=== PATIENT | male | born 1965 | race Caucasian/White ===

== ENCOUNTER 2017-05-23 18:06 | Emergency (ER) | payer OTHER ==
[2017-05-23 19:26] VITALS: TEMP 97.8
[2017-05-23] MEDS ORDERED: SODIUM CHLORIDE 0.9% 1,000 ML IV STA ×2 (19:51)
[2017-05-23] MEDS ORDERED: RX INFO: IV CONTRAST WAS GIVEN 1 EACH MISC MISCELLANE PRN (19:51)
--- NOTE | 2017-05-23 20:06 | ED ---
General Adult HPI - General Chief complaint: Abdominal Pain Stated complaint: DR SENT/POSS APPENDICITIS Time Seen by Provider: 05/23/17 19:42 Source: patient, RN notes reviewed, old records reviewed Mode of arrival: ambulatory Limitations: no limitations - History of Present Illness Initial comments: This is a 51-year-old male to the ER for evaluation of pain with flank pain and right-sided abdominal pain and groin pain. Patient has no medical history of abdominal issues. Patient is an outpatient ultrasound which at this point so far been negative. Patient denies any fevers and mild nausea no vomiting. Occasional bloating. No recent waking or weight loss. Patient has no medical history takes no medications no surgical history. No travel history no family members with similar symptoms. Patient has seen his doctor outpatient basis twice for similar symptoms - Related Data Home Medications Medication Instructions Recorded Confirmed Ibuprofen [Motrin] 800 mg PO DAILY PRN 12/25/14 05/23/17 Omeprazole [PriLOSEC] 20 mg PO DAILY PRN 05/23/17 05/23/17 Allergies Allergy/AdvReac Type Severity Reaction Status Date / Time No Known Allergies Allergy Verified 05/23/17 20:03 Review of Systems ROS Statement: Those systems with pertinent positive or pertinent negative responses have been documented in the HPI. ROS Other: All systems not noted in ROS Statement are negative. Past Medical History Past Medical History: GERD/Reflux, Osteoarthritis (OA), Sleep Apnea/CPAP/BIPAP Additional Past Medical History / Comment(s): USES CPAP History of Any Multi-Drug Resistant Organisms: None Reported Past Surgical History: Heart Catheterization, Orthopedic Surgery Additional Past Surgical History / Comment(s): HEART CATH -NEG. CARPAL TUNNEL RIGHT. ORIF JAW. Past Anesthesia/Blood Transfusion Reactions: No Reported Reaction Smoking Status: Former smoker Past Alcohol Use History: Occasional Past Drug Use History: None Reported - Past Family History Father Family Medical History: AICD/Pacemaker General Exam Limitations: no limitations General appearance: alert, in no apparent distress Head exam: Present: atraumatic, normocephalic, normal inspection Eye exam: Present: normal appearance, PERRL, EOMI. Absent: scleral icterus, conjunctival injection, periorbital swelling ENT exam: Present: normal exam, mucous membranes moist Neck exam: Present: normal inspection. Absent: tenderness, meningismus, lymphadenopathy Respiratory exam: Present: normal lung sounds bilaterally. Absent: respiratory distress, wheezes, rales, rhonchi, stridor Cardiovascular Exam: Present: regular rate, normal rhythm, normal heart sounds. Absent: systolic murmur, diastolic murmur, rubs, gallop, clicks GI/Abdominal exam: Present: soft, normal bowel sounds. Absent: distended, tenderness, guarding, rebound, rigid Extremities exam: Present: normal inspection, full ROM, normal capillary refill. Absent: tenderness, pedal edema, joint swelling, calf tenderness Back exam: Present: normal inspection Neurological exam: Present: alert, oriented X3, CN II-XII intact Psychiatric exam: Present: normal affect, normal mood Skin exam: Present: warm, dry, intact, normal color. Absent: rash Course Vital Signs 05/23/17 05/23/17 05/23/17 19:23 20:08 21:36 Temperature 97.8 F Pulse Rate 72 67 68 Respiratory 16 18 16 Rate Blood Pressure 173/90 160/92 127/77 O2 Sat by Pulse 99 97 96 Oximetry - Reevaluation(s) Reevaluation #1: Patient is in no acute distress, no nausea vomiting, no current diarrhea or pain Medical Decision Making - Medical Decision Making 51 male to ER for evaluation of abdominal pain, patient has had multiple outpatient evaluations including ultrasound. Colonoscopy. Patient was sent in for further evaluation, sent in for evaluation regarding possible appendicitis, CT of the pelvis is negative as well as lab works being negative. Patient can be discharged home - Lab Data Result diagrams: 05/23/17 20:03 05/23/17 20:03 Lab Results 05/23/17 05/23/17 05/23/17 Range/Units 20:03 20:03 20:03 WBC 4.8 (3.8-10.6) k/uL RBC 5.26 (4.30-5.90) m/uL Hgb 15.5 (13.0-17.5) gm/dL Hct 46.8 (39.0-53.0) % MCV 89.0 (80.0-100.0) fL MCH 29.4 (25.0-35.0) pg MCHC 33.1 (31.0-37.0) g/dL RDW 13.8 (11.5-15.5) % Plt Count 205 (150-450) k/uL Neutrophils % 49 % Lymphocytes % 38 % Monocytes % 7 % Eosinophils % 4 % Basophils % 1 % Neutrophils # 2.4 (1.3-7.7) k/uL Lymphocytes # 1.8 (1.0-4.8) k/uL Monocytes # 0.3 (0-1.0) k/uL Eosinophils # 0.2 (0-0.7) k/uL Basophils # 0.0 (0-0.2) k/uL Sodium 139 (137-145) mmol/L Potassium 3.9 (3.5-5.1) mmol/L Chloride 104 (98-107) mmol/L Carbon Dioxide 24 (22-30) mmol/L Anion Gap 11 mmol/L BUN 15 (9-20) mg/dL Creatinine 0.90 (0.66-1.25) mg/dL Est GFR (MDRD) Af Amer >60 (>60 ml/min/1.73 sqM) Est GFR (MDRD) Non-Af >60 (>60 ml/min/1.73 sqM) Glucose 91 (74-99) mg/dL Plasma Lactic Acid Jacob (0.7-2.0) mmol/L Calcium 9.6 (8.4-10.2) mg/dL Total Bilirubin 0.5 (0.2-1.3) mg/dL AST 37 (17-59) U/L ALT 49 (21-72) U/L Alkaline Phosphatase 73 (38-126) U/L Total Protein 7.0 (6.3-8.2) g/dL Albumin 4.2 (3.5-5.0) g/dL Amylase <30 L (30-110) U/L Lipase 84 (23-300) U/L Urine Color Colorless Urine Appearance Clear (Clear) Urine pH 5.5 (5.0-8.0) Ur Specific [place] 1.002 (1.001-1.035) Urine Protein Negative (Negative) Urine Glucose (UA) Negative (Negative) Urine Ketones Negative (Negative) Urine Blood Negative (Negative) Urine Nitrite Negative (Negative) Urine Bilirubin Negative (Negative) Urine Urobilinogen <2.0 (<2.0) mg/dL Ur Leukocyte Esterase Negative (Negative) 05/23/17 Range/Units 20:03 WBC (3.8-10.6) k/uL RBC (4.30-5.90) m/uL Hgb (13.0-17.5) gm/dL Hct (39.0-53.0) % MCV (80.0-100.0) fL MCH (25.0-35.0) pg MCHC (31.0-37.0) g/dL RDW (11.5-15.5) % Plt Count (150-450) k/uL Neutrophils % % Lymphocytes % % Monocytes % % Eosinophils % % Basophils % % Neutrophils # (1.3-7.7) k/uL Lymphocytes # (1.0-4.8) k/uL Monocytes # (0-1.0) k/uL Eosinophils # (0-0.7) k/uL Basophils # (0-0.2) k/uL Sodium (137-145) mmol/L Potassium (3.5-5.1) mmol/L Chloride (98-107) mmol/L Carbon Dioxide (22-30) mmol/L Anion Gap mmol/L BUN (9-20) mg/dL Creatinine (0.66-1.25) mg/dL Est GFR (MDRD) Af Amer (>60 ml/min/1.73 sqM) Est GFR (MDRD) Non-Af (>60 ml/min/1.73 sqM) Glucose (74-99) mg/dL Plasma Lactic Acid [place] 1.2 (0.7-2.0) mmol/L Calcium (8.4-10.2) mg/dL Total Bilirubin (0.2-1.3) mg/dL AST (17-59) U/L ALT (21-72) U/L Alkaline Phosphatase (38-126) U/L Total Protein (6.3-8.2) g/dL Albumin (3.5-5.0) g/dL Amylase (30-110) U/L Lipase (23-300) U/L Urine Color Urine Appearance (Clear) Urine pH (5.0-8.0) Ur Specific [place] (1.001-1.035) Urine Protein (Negative) Urine Glucose (UA) (Negative) Urine Ketones (Negative) Urine Blood (Negative) Urine Nitrite (Negative) Urine Bilirubin (Negative) Urine Urobilinogen (<2.0) mg/dL Ur Leukocyte Esterase (Negative) - Radiology Data Radiology results: report reviewed (CT abdomen and pelvis is negative for acute disease), image reviewed Disposition Clinical Impression: Abdominal pain Disposition: HOME SELF-CARE Condition: Good Instructions: Abdominal Pain (ED) Referrals: Marito Saxena DO [Primary Care Provider] - 1-2 days
[2017-05-23 20:24] LABS: Basophils % (A) 1 %; CH 31.7; CHCM 35.8; Eosinophils # (A) 0.2 k/uL (0-0.7); Eosinophils % (A) 4 %; HCT 46.8 % (39.0-53.0); HDW 2.56; HGB 15.5 gm/dL (13.0-17.5); Luc # (Auto) 0.08; Luc % (Auto) 2; Lymphocytes # (A) 1.8 k/uL (1.0-4.8); Lymphocytes % (A) 38 %; MCH 29.4 pg (25.0-35.0); MCHC 33.1 g/dL (31.0-37.0); Mean Platelet Volume 7.4; Monocytes # (A) 0.3 k/uL (0-1.0); Monocytes % (A) 7 %; Neutrophils # (A) 2.4 k/uL (1.3-7.7); Neutrophils % (A) 49 %; RBC 5.26 m/uL (4.30-5.90); RDW 13.8 % (11.5-15.5); WBC 4.8 k/uL (3.8-10.6)
[2017-05-23 20:31] LABS: Appearance,Urine Clear (Clear); Bilirubin,Urine Negative (Negative); Glucose,Urine (UA) Negative (Negative); Ketones,Urine Negative (Negative); Leukocyte Esterase,Urine Negative (Negative); Nitrite,Urine Negative (Negative); PH, Urine 5.5 (5.0-8.0); Protein,Urine Negative (Negative); Specific Gravity,Urine 1.002 (1.001-1.035); UA Billing (MACRO vs. MICRO) CHEM; Urobilinogen,Urine <2.0 mg/dL (<2.0)
[2017-05-23 20:36] LABS: ALT 49 U/L (21-72); AST 37 U/L (17-59); Alkaline Phosphatase 73 U/L (38-126); Amylase <30 U/L (30-110); Anion Gap 11 mmol/L; Blood Urea Nitrogen 15 mg/dL (9-20); Calcium 9.6 mg/dL (8.4-10.2); Carbon Dioxide 24 mmol/L (22-30); Chloride 104 mmol/L (98-107); Glucose 91 mg/dL (74-99); Non-African American GFR(MDRD) >60 (>60 ml/min/1.73 sqM); Potassium 3.9 mmol/L (3.5-5.1); Sodium 139 mmol/L (137-145); Total Bilirubin 0.5 mg/dL (0.2-1.3)
--- NOTE | 2017-05-23 21:11 | CT ---
EXAMINATION TYPE: CT abdomen pelvis w con DATE OF EXAM: 05/23/2017 COMPARISON: 12/24/2011 HISTORY: RLQ pain for [address] DLP: 936.4 mGycm Automated exposure control for dose reduction was used. TECHNIQUE: Helical acquisition of images was performed from the lung bases through the pelvis. CONTRAST: Performed without Oral Contrast and with IV Contrast, patient injected with 100 mL of Omnipaque 300. FINDINGS: Lung bases are clear. There is no pleural effusion. Liver shows no focal defect. Spleen pancreas gallbladder appear normal. Bile ducts are not dilated. There is no adrenal mass. Kidneys show satisfactory contrast opacification. There is no hydronephrosi s. There is no retroperitoneal adenopathy. There is no ascites. Bladder distends smoothly. I see no i ntestinal wall thickening. There are no dilated loops. I see no bony destructive process. The bony st ructures appear intact. There are a few sigmoid diverticula. There is no evidence of diverticulitis. IMPRESSION: MINIMAL COLONIC DIVERTICULOSIS. NO EVIDENCE OF DIVERTICULITIS. NO ADVERSE CHANGE COMPARED TO OLD EXAM . I DO NOT SEE A CAUSE FOR RIGHT LOWER QUADRANT PAIN.
[2017-05-23 21:36] VITALS: BP 127/77; PULSE 68; RESP 16
== END 2017-05-23 21:36 | disposition home or self-care (01) ==
LOC: EC 18:06
DX: R10.31 Right lower quadrant pain (principal); R11.0 Nausea; R14.0 Abdominal distension (gaseous); Z87.891 Personal history of nicotine dependence
CPT/HCPCS: 99284; 96360; 36415; 80053; 82150; 83605; 83690; 85025; 81003; 87086; 74177; Q9967

== ENCOUNTER 2018-08-28 08:51 | Day surgery (SDC) | payer BC ==
[2018-08-25 09:30] VITALS: BMI 33.9
[~2018-08-28 08:51] MED LIST: LACTATED RINGERS 1,000 ML IV SCH; LIDOCAINE 1% 20 ML VIAL (10MG/ML) FOR IV START INTRADERMA PRN; MIDAZOLAM 2 MG/2 ML VIAL IV PRN
[2018-08-28 09:12] VITALS: RESP 18; TEMP 97.8
[2018-08-28] MEDS ORDERED: PROPOFOL 10 MG/ML 20 ML VIAL IV ONE (10:11)
[2018-08-28] MEDS ORDERED: LIDOCAINE 1% INJ 10MG/ML (20 ML MDV) ONE (10:11)
[2018-08-28 10:58] VITALS: BP 125/75; PULSE 73
--- NOTE | 2018-08-28 11:26 | P.PCN ---
Date of Procedure: 08/28/18 Procedure(s) Performed: Procedure: Total colonoscopy. Preoperative diagnosis: Screening for neoplasia, patient has history of polyps. Postoperative diagnosis: Exam within normal limits. Preparation: HalfLytely prep. Sedation: Was provided by anesthesia. Brief clinical history: The patient is a 53-year-old male who is scheduled for this evaluation because of history of polyps. His last exam was around 5 years ago. The patient has no abdominal complaints, bleeding or anemia. Procedure: With the patient on his left lateral decubitus position and after informed consent and adequate sedation, the perianal area was inspected and it did not show any fissures or fistulas. There were no masses felt on digital rectal examination. The Olympus CFH 190L video colonoscope was then inserted in the rectum in the usual fashion and advanced to the cecum. The mucosa appeared healthy. No polyps or tumors were seen or any obvious diverticular disease or other pathology. I retroflexed the endoscope in the rectum before the endoscope was withdrawn. The patient tolerated the procedure well. Plan: The patient was reassured. He will follow up with you as planned and I recommended repeat exam in 5 years.
== END 2018-08-28 11:19 | disposition home or self-care (01) ==
LOC: ORWHC2ENDO 08:51
DX: Z12.11 Encounter for screening for malignant neoplasm of colon (principal); K21.9 Gastro-esophageal reflux disease without esophagitis; M19.90 Unspecified osteoarthritis, unspecified site; G47.33 Obstructive sleep apnea (adult) (pediatric); Z86.010 Personal history of colon polyps; Z87.891 Personal history of nicotine dependence; Z79.1 Long term (current) use of non-steroidal anti-inflammatories (NSAID); Z79.899 Other long term (current) drug therapy
CPT/HCPCS: J2001; J2704; G0105; 45378

== ENCOUNTER → 2018-09-15 | Outpatient (CLI) | payer BC ==
--- NOTE | 2018-09-15 09:37 | US ---
EXAMINATION TYPE: US thyroid st tissue head/neck DATE OF EXAM: 09/15/2018 COMPARISON: NONE CLINICAL HISTORY: R22.1 Swelling mass neck. Patient states he had a palpable lump directly under his chin about 2 months ago. This palpable lump has now gone away GLAND SIZE: Right Lobe: 4.1 x 1.3 x 1.1 cm Overall Parenchyma: heterogenous Left Lobe: 3.6 x 1.1 x 1.3 cm Overall Parenchyma: heterogeneous Isthmus Thickness: 0.2 cm NODULES RIGHT: # of nodules measured on right: 0 LEFT: # of nodules measured on left: 0 ISTHMUS: # of nodules measured in the isthmus: 0 Bilateral neck scanned, no evidence of lymphadenopathy. No abnormality visualized at the patient's pa lpable IMPRESSION: Thyroid gland is slightly heterogenous but otherwise unremarkable with no measurable nodu le. No sonographic abnormality is seen in the patient's area of submental previous palpable abnormali ty that has resolved or patient history.
== END ==
LOC: RADUSWWP 08:48
PROVIDERS: ATTEND Family Medicine
DX: R93.89 Abnormal findings on diagnostic imaging of other specified body structures (principal)
CPT/HCPCS: 76536

== ENCOUNTER → 2019-04-27 | Outpatient (CLI) | payer BC ==
--- NOTE | 2019-04-27 13:53 | CT ---
EXAMINATION TYPE: CT sinus wo con DATE OF EXAM: 04/27/2019 COMPARISON: None HISTORY: Parosmia CT DLP: 622 mGycm. Automated Exposure Control for Dose Reduction was Utilized. TECHNIQUE: CT scan of the sinuses is performed without contrast, axial images are obtained, coronal r eformatted images are also reviewed. FINDINGS: The paranasal sinuses including the frontal, ethmoid, sphenoid, and maxillary sinuses bila terally are well-aerated without abnormal opacification. The ostiomeatal complex is patent bilateral ly on the coronal images. Visualized portion of mastoid air cells show no abnormal opacification. The globes are intact bilate rally. IMPRESSION: The sinuses are clear and the ostiomeatal complex is patent bilaterally.
== END ==
LOC: RADCTMAIN 12:16
PROVIDERS: ATTEND Family Medicine
DX: R43.1 Parosmia (principal)
CPT/HCPCS: 70486

== ENCOUNTER → 2019-06-15 | Outpatient (CLI) | payer BC ==
--- NOTE | 2019-06-15 13:36 | MR ---
EXAMINATION TYPE: MR brain wo/w con DATE OF EXAM: 06/15/2019 COMPARISON: CT sinus dated 04/27/2019 HISTORY: Anosmia TECHNIQUE: Multiplanar, multisequence images of the brain and brainstem is performed without and with IV contras t, utilizing 9.5 mL intravenous Gadavist . FINDINGS: Diffusion weighted images demonstrate no evidence of a recent infarct or other diffusion ab normality. There is no extra-axial fluid collection. Mild burden nonspecific white matter change dem onstrated as scattered foci of T2/FLAIR hyperintensity within the periventricular and subcortical whi te matter without lobar predominance. The ventricular system and cisternal spaces are normal in size and appearance. The brain volume is age appropriate. Midline structures demonstrate normal morphology. The craniocervical junction appears within normal limits. There is a linear extradural , extra-axial area of enhancement along the medial falx measurin g 0.5 x 0.2 x 0.5 cm on postcontrast axial image 12 and coronal image 5, likely a small extradural me ningioma. This is near the olfactory sulcus in this patient with anosmia. The dural venous sinuses ap pear patent. The visualized sinuses demonstrate mild mucosal thickening within the ethmoid, frontal, and sphenoid sinuses. Remaining paranasal sinuses and mastoid air cells are well aerated. Nasal turbi yeni mucosal hypertrophy is seen. IMPRESSION: 1. 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 2. Mild paranasal sinus disease. 3. 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
== END | disposition home or self-care (01) ==
LOC: RADMRIMAIN 10:39
PROVIDERS: ATTEND Otolaryngology
DX: R90.89 Other abnormal findings on diagnostic imaging of central nervous system (principal); R43.0 Anosmia
CPT/HCPCS: 70553; A9585

== ENCOUNTER 2020-06-11 13:35 | Emergency (ER) | payer BC ==
[2020-06-11 14:08] VITALS: TEMP 99.3
[2020-06-11 14:53] LABS: Basophils % (A) 0 %; Eosinophils # (A) 0.2 k/uL (0-0.7); Eosinophils % (A) 2 %; HCT 48.2 % (39.0-53.0); HGB 16.3 gm/dL (13.0-17.5); Lymphocytes # (A) 1.7 k/uL (1.0-4.8); Lymphocytes % (A) 17 %; MCH 29.6 pg (25.0-35.0); MCHC 33.8 g/dL (31.0-37.0); MCV 87.6 fL (80.0-100.0); Mean Platelet Volume 7.2; Monocytes # (A) 0.6 k/uL (0-1.0); Monocytes % (A) 6 %; Neutrophils # (A) 7.4 k/uL (1.3-7.7); Neutrophils % (A) 73 %; Platelet Count 272 k/uL (150-450); RBC 5.51 m/uL (4.30-5.90); RDW 12.5 % (11.5-15.5); WBC 10.1 k/uL (3.8-10.6)
[2020-06-11 14:54] LABS: Appearance,Urine Clear (Clear); Bilirubin,Urine Negative (Negative); Blood,Urine Negative (Negative); Color,Urine Yellow; Glucose,Urine (UA) Negative (Negative); Ketones,Urine Negative (Negative); Leukocyte Esterase,Urine Negative (Negative); Nitrite,Urine Negative (Negative); PH, Urine 5.5 (5.0-8.0); Protein,Urine Negative (Negative); Specific Gravity,Urine 1.012 (1.001-1.035); Urobilinogen,Urine <2.0 mg/dL (<2.0)
[2020-06-11] MEDS ORDERED: MORPHINE SULFATE 4 MG/ML SYRINGE IV STA (15:08)
[2020-06-11] MEDS ORDERED: PANTOPRAZOLE 40 MG/10 ML VIAL IVP STA (15:08)
[2020-06-11] MEDS ORDERED: SODIUM CHLORIDE 0.9% 1,000 ML IV STA (15:08)
[2020-06-11] MEDS ORDERED: ONDANSETRON 4 MG/2 ML VIAL IVP STA (15:08)
[2020-06-11 15:20] LABS: ALT 54 U/L (4-49); AST 49 U/L (17-59); African American GFR (CKD) >90 (>60 ml/min/1.73 sqM); Albumin 4.6 g/dL (3.5-5.0); Alkaline Phosphatase 84 U/L (38-126); Anion Gap 9 mmol/L; Blood Urea Nitrogen 13 mg/dL (9-20); Calcium 9.5 mg/dL (8.4-10.2); Carbon Dioxide 27 mmol/L (22-30); Chloride 103 mmol/L (98-107); Glucose 90 mg/dL (74-99); Non-African American GFR(CKD) 87 (>60 ml/min/1.73 sqM); Sodium 139 mmol/L (137-145); Total Protein 7.6 g/dL (6.3-8.2)
[2020-06-11 15:26] LABS: Potassium 4.5 mmol/L (3.5-5.1)
[2020-06-11 16:06] LABS: Basophils # (A) 0.1 k/uL (0-0.2); Basophils % (A) 1 %; Eosinophils # (A) 0.2 k/uL (0-0.7); Eosinophils % (A) 3 %; HCT 46.4 % (39.0-53.0); HGB 15.8 gm/dL (13.0-17.5); Lymphocytes # (A) 1.7 k/uL (1.0-4.8); Lymphocytes % (A) 19 %; MCHC 34.1 g/dL (31.0-37.0); MCV 88.1 fL (80.0-100.0); Mean Platelet Volume 7.1; Monocytes # (A) 0.5 k/uL (0-1.0); Monocytes % (A) 6 %; Neutrophils # (A) 6.4 k/uL (1.3-7.7); Neutrophils % (A) 71 %; Platelet Count 232 k/uL (150-450); RBC 5.27 m/uL (4.30-5.90); RDW 12.1 % (11.5-15.5)
--- NOTE | 2020-06-11 16:16 | ED ---
Abdominal Pain HPI - General Chief Complaint: Abdominal Pain Stated Complaint: abnormal labs Time Seen by Provider: 06/11/20 15:08 Source: patient Mode of arrival: ambulatory Limitations: no limitations - History of Present Illness Initial Comments: Patient is a 54-year-old male presenting to the emergency department with a chief complaint of abdominal pain. Patient reports the pain started about 3 days ago with gradual increase in severity. Patient states initially it all started with abdominal bloating and now the pain is mostly located in the lower abdominal region. States the pain seems to be exacerbated whenever he is bending forward. She does report increased urgency and frequency but has intermittent dysuria baseline. History of exploratory laparotomy. Denies any hematuria, hematochezia case or melena. Denies any penile discharge, testicular swelling or tenderness. Denies night sweats fevers or chills. Denies chest pain shortness of breath. States she is not constipated is having normal bowel movements. - Related Data Home Medications Medication Instructions Recorded Confirmed Ibuprofen [Motrin] 800 mg PO TID PRN 12/25/14 06/11/20 Famotidine 20 mg PO BID 06/11/20 06/11/20 Multivitamins, Thera [Multivitamin 1 tab PO DAILY 06/11/20 06/11/20 (formulary)] Previous Rx's Medication Instructions Recorded Amoxicillin/Potassium Clav 1 tab PO Q12HR #20 tab 06/11/20 [Augmentin 875-125 Tablet] Allergies Allergy/AdvReac Type Severity Reaction Status Date / Time No Known Allergies Allergy Verified 06/11/20 16:15 Review of Systems ROS Statement: Those systems with pertinent positive or pertinent negative responses have been documented in the HPI. ROS Other: All systems not noted in ROS Statement are negative. Past Medical History Past Medical History: GERD/Reflux, Osteoarthritis (OA), Sleep Apnea/CPAP/BIPAP Additional Past Medical History / Comment(s): HX OF POLYPS, History of Any Multi-Drug Resistant Organisms: None Reported Past Surgical History: Heart Catheterization, Orthopedic Surgery Additional Past Surgical History / Comment(s): HEART CATH -NEG. CARPAL TUNNEL RIGHT. ORIF JAW. LAPROSCOPY, COLONOSCOPY Past Anesthesia/Blood Transfusion Reactions: No Reported Reaction Past Psychological History: No Psychological Hx Reported Smoking Status: Never smoker Past Alcohol Use History: Occasional Past Drug Use History: None Reported - Past Family History Brother(s) Family Medical History: Cancer Additional Family Medical History / Comment(s): KIDNEY Father Family Medical History: AICD/Pacemaker General Exam Limitations: no limitations General appearance: alert, in no apparent distress, obese Head exam: Present: atraumatic, normocephalic, normal inspection Eye exam: Present: normal appearance, PERRL, EOMI Pupils: Present: normal accommodation ENT exam: Present: normal exam, normal oropharynx, mucous membranes moist, TM's normal bilaterally, normal external ear exam Neck exam: Present: normal inspection, full ROM. Absent: tenderness Respiratory exam: Present: normal lung sounds bilaterally. Absent: respiratory distress, wheezes, rales Cardiovascular Exam: Present: regular rate, normal rhythm, normal heart sounds GI/Abdominal exam: Present: soft, tenderness (Right lower quadrant, suprapubic and left lower quadrant). Absent: guarding, rebound, rigid Extremities exam: Present: normal inspection, full ROM, normal capillary refill. Absent: tenderness Back exam: Present: normal inspection, full ROM. Absent: tenderness, CVA tenderness (R), CVA tenderness (L) Neurological exam: Present: alert, oriented X3, normal gait. Absent: CN II-XII intact Psychiatric exam: Present: normal affect, normal mood Skin exam: Present: warm, dry, intact, normal color Course Vital Signs 06/11/20 14:05 Temperature 99.3 F Pulse Rate 81 Respiratory 17 Rate Blood Pressure 156/90 O2 Sat by Pulse 98 Oximetry Medical Decision Making - Medical Decision Making 54-year-old male presenting to the emergency department chief complaint abdominal pain. On physical examination, patient has lower abdominal tenderness to palpation. Laboratory work is unremarkable. EKG showing sinus rhythm. CT of abdomen and pelvis reveals sigmoid diverticulosis. Patient will be started on Augmentin. He is otherwise well-appearing with no nausea or significant pain unless he is moving quite a bit. Patient will be discharged at 10 day course of Augmentin. He was also given a thorough instruction on the appropriate diet for diverticulosis. Strict return prescribed as were thoroughly discussed the patient was understanding and agreement. Case discussed with physician. - Lab Data Result diagrams: 06/11/20 16:03 06/11/20 14:22 Lab Results 06/11/20 06/11/20 06/11/20 Range/Units 14:22 14:22 14:22 WBC 10.1 (3.8-10.6) k/uL RBC 5.51 (4.30-5.90) m/uL Hgb 16.3 (13.0-17.5) gm/dL Hct 48.2 (39.0-53.0) % MCV 87.6 (80.0-100.0) fL MCH 29.6 (25.0-35.0) pg MCHC 33.8 (31.0-37.0) g/dL RDW 12.5 (11.5-15.5) % Plt Count 272 (150-450) k/uL MPV 7.2 Neutrophils % 73 % Lymphocytes % 17 % Monocytes % 6 % Eosinophils % 2 % Basophils % 0 % Neutrophils # 7.4 (1.3-7.7) k/uL Lymphocytes # 1.7 (1.0-4.8) k/uL Monocytes # 0.6 (0-1.0) k/uL Eosinophils # 0.2 (0-0.7) k/uL Basophils # 0.0 (0-0.2) k/uL Sodium 139 (137-145) mmol/L Potassium 4.5 (3.5-5.1) mmol/L Chloride 103 (98-107) mmol/L Carbon Dioxide 27 (22-30) mmol/L Anion Gap 9 mmol/L BUN 13 (9-20) mg/dL Creatinine 0.98 (0.66-1.25) mg/dL Est GFR (CKD-EPI)AfAm >90 (>60 ml/min/1.73 sqM) Est GFR (CKD-EPI)NonAf 87 (>60 ml/min/1.73 sqM) Glucose 90 (74-99) mg/dL Calcium 9.5 (8.4-10.2) mg/dL Total Bilirubin 1.0 (0.2-1.3) mg/dL AST 49 (17-59) U/L ALT 54 H (4-49) U/L Alkaline Phosphatase 84 (38-126) U/L Total Protein 7.6 (6.3-8.2) g/dL Albumin 4.6 (3.5-5.0) g/dL Lipase (23-300) U/L Urine Color Yellow Urine Appearance Clear (Clear) Urine pH 5.5 (5.0-8.0) Ur Specific [place] 1.012 (1.001-1.035) Urine Protein Negative (Negative) Urine Glucose (UA) Negative (Negative) Urine Ketones Negative (Negative) Urine Blood Negative (Negative) Urine Nitrite Negative (Negative) Urine Bilirubin Negative (Negative) Urine Urobilinogen <2.0 (<2.0) mg/dL Ur Leukocyte Esterase Negative (Negative) 06/11/20 06/11/20 Range/Units 16:03 16:03 WBC 9.0 (3.8-10.6) k/uL RBC 5.27 (4.30-5.90) m/uL Hgb 15.8 (13.0-17.5) gm/dL Hct 46.4 (39.0-53.0) % MCV 88.1 (80.0-100.0) fL MCH 30.0 (25.0-35.0) pg MCHC 34.1 (31.0-37.0) g/dL RDW 12.1 (11.5-15.5) % Plt Count 232 (150-450) k/uL MPV 7.1 Neutrophils % 71 % Lymphocytes % 19 % Monocytes % 6 % Eosinophils % 3 % Basophils % 1 % Neutrophils # 6.4 (1.3-7.7) k/uL Lymphocytes # 1.7 (1.0-4.8) k/uL Monocytes # 0.5 (0-1.0) k/uL Eosinophils # 0.2 (0-0.7) k/uL Basophils # 0.1 (0-0.2) k/uL Sodium (137-145) mmol/L Potassium (3.5-5.1) mmol/L Chloride (98-107) mmol/L Carbon Dioxide (22-30) mmol/L Anion Gap mmol/L BUN (9-20) mg/dL Creatinine (0.66-1.25) mg/dL Est GFR (CKD-EPI)AfAm (>60 ml/min/1.73 sqM) Est GFR (CKD-EPI)NonAf (>60 ml/min/1.73 sqM) Glucose (74-99) mg/dL Calcium (8.4-10.2) mg/dL Total Bilirubin (0.2-1.3) mg/dL AST (17-59) U/L ALT (4-49) U/L Alkaline Phosphatase (38-126) U/L Total Protein (6.3-8.2) g/dL Albumin (3.5-5.0) g/dL Lipase 54 (23-300) U/L Urine Color Urine Appearance (Clear) Urine pH (5.0-8.0) Ur Specific [place] (1.001-1.035) Urine Protein (Negative) Urine Glucose (UA) (Negative) Urine Ketones (Negative) Urine Blood (Negative) Urine Nitrite (Negative) Urine Bilirubin (Negative) Urine Urobilinogen (<2.0) mg/dL Ur Leukocyte Esterase (Negative) - EKG Data EKG Comments: Sinus rhythm. Ventricular rate 79, DE 138, QRS 86, QTC 403. Disposition Clinical Impression: Sigmoid diverticulitis, Abdominal pain Disposition: HOME SELF-CARE Condition: Stable Instructions (If sedation given, give patient instructions): Diverticulitis Diet (ED), Diverticulitis (ED) Additional Instructions: Follow the appropriate diverticulitis diet. Take prescribed medication as directed. Return to emergency department if symptoms worsen. Prescriptions: Amoxicillin/Potassium Clav [Augmentin 875-125 Tablet] 1 tab PO Q12HR #20 tab Is patient prescribed a controlled substance at d/c from ED?: No Referrals: Marito Saxena DO [Primary Care Provider] - 1-2 days Time of Disposition: 17:37
--- NOTE | 2020-06-11 17:20 | CT ---
EXAMINATION TYPE: CT abdomen pelvis w con DATE OF EXAM: 06/11/2020 COMPARISON: 05/23/2017 HISTORY: LLQ pain CT DLP: 1275.2 mGycm Automated exposure control for dose reduction was used. CONTRAST: Performed with IV Contrast, patient injected with 100 mL of Isovue 300. Lung bases are clear. There is no pleural effusion. Heart size is normal. There is no pericardial eff usion. There is mild fatty infiltration of the liver. Gallbladder appears normal. Spleen stomach pancreas ap pear normal. The bile ducts are not dilated. There is no adrenal mass. Kidneys show satisfactory contrast opacification. There is no hydronephrosi s. Ureters are not dilated. Bladder distends smoothly. There is no inguinal hernia. There is some fat stranding around the mid and distal sigmoid colon. There are a few sigmoid divertic alem. Lumbar vertebra have normal alignment. There is no compression fracture. The posterior elements are i ntact. Bony pelvis is intact. Hip joints appear normal. Appendix is not definitely seen. There is no sign of thickened appendix. IMPRESSION: There are some inflammatory changes around the mid and distal sigmoid colon consistent with acute div erticulitis. Mild wall thickening. No abscess seen. Diverticulitis is a change compared to old exam.
[2020-06-11] MEDS ORDERED: AMOXIC-POT CLAV 875-125MG 1 EACH TAB PO STA (17:35)
[2020-06-11 18:09] VITALS: BP 125/79; PULSE 71; RESP 16
== END 2020-06-11 18:09 | disposition home or self-care (01) ==
LOC: EC 13:35
DX: K57.32 Diverticulitis of large intestine without perforation or abscess without bleeding (principal); K57.30 Diverticulosis of large intestine without perforation or abscess without bleeding; K21.9 Gastro-esophageal reflux disease without esophagitis; M19.90 Unspecified osteoarthritis, unspecified site; G47.30 Sleep apnea, unspecified; Z79.899 Other long term (current) drug therapy; Z99.89 Dependence on other enabling machines and devices
CPT/HCPCS: 36415; 93005; 80053; 83690; 85025; 81003; 74177; 99284; 96374; C9113; Q9967

== ENCOUNTER → 2020-08-22 | Outpatient (CLI) | payer BC ==
--- NOTE | 2020-08-22 09:30 | US ---
EXAMINATION TYPE: US carotid duplex BILAT DATE OF EXAM: 08/22/2020 COMPARISON: NONE CLINICAL HISTORY: R09.89 Other specified symptoms and signs. EXAM MEASUREMENTS: RIGHT: Peak Systolic Velocity (PSV) cm/sec ----- Right CCA: 76.3 ----- Right ICA: 71.7 ----- Right ECA: 98.8 ICA/CCA ratio: 0.9 RIGHT: End Diastole cm/sec ----- Right CCA: 17.8 ----- Right ICA: 25.3 ----- Right ECA: 12.1 LEFT: Peak Systolic Velocity (PSV) cm/sec ----- Left CCA: 78.5 ----- Left ICA: 75.1 ----- Left ECA: 70.4 ICA/CCA ratio: 1.0 LEFT: End Diastole cm/sec ----- Left CCA: 21.4 ----- Left ICA: 31.1 ----- Left ECA: 12.2 VERTEBRALS (direction of flow): Right Vertebral: antegrade Left Vertebral: antegrade Rhythm: Normal Mild to moderate calcified plaque with no significant velocity elevations. IMPRESSION: 1. Mild to moderate plaque with no significant hemodynamic stenosis. Criteria for Assigning % of Stenosis / Diameter reduction (Estimation based on the indirect measurements of the internal carotid artery velocities (ICA PSV). 1. Normal (no stenosis)=ICA PSV < 125 cm/s: ratio < 2.0: ICA EDV<40 cm/s. 2. Less than 50% stenosis=ICA PSV < 125 cm/s: ratio < 2.0: ICA EDV<40 cm/s. 3. 50 to 69% stenosis=ICA PSV of 125 to 230 cm/s: ration 2.0 ? 4.0: ICA EDV 40-100 cm/s. 4. Greater than 70% stenosis to near occlusion= ICA PSV > 230 cm/s: ratio > 4.0: ICA EDV > 100 cm/s. 5. Near occlusion= ICA PSV velocities may be low or undetectable: variable ratio and ICA EDV. 6. Total occlusion=unable to detect flow.
== END | disposition home or self-care (01) ==
LOC: RADUSWWP 08:49
PROVIDERS: ATTEND Family Medicine
DX: I65.23 Occlusion and stenosis of bilateral carotid arteries (principal)
CPT/HCPCS: 93880

== ENCOUNTER → 2022-01-11 | Outpatient (CLI) | payer BC ==
--- NOTE | 2022-01-11 20:57 | MR ---
MRI CERVICAL SPINE: CLINICAL HISTORY: Neck pain with numbness into left arm. Radiculopathy. TECHNIQUE: Multiplanar, multisequence imaging of the cervical spine is performed without contrast. COMPARISON: None. FINDINGS: Sagittal images of the cervical spine show the craniocervical junction to appear within nor mal limits. The cervical and upper thoracic spinal cord is normal in caliber and signal. Alignment i s straightened with grade 1 retrolisthesis C6 on C7. Mild to moderate disc space narrowing and spurr ing C6-C7 level The vertebral body and intravertebral disk heights otherwise are normal. Heterogeneou s Modic type I endplate changes at left C6-C7 level. Axial images at C2-C3 level show left-sided uncovertebral facet degenerative changes causing mild lef t-sided neural foraminal narrowing. Axial images at C3-C4 level show uncovertebral facet degenerative changes bilaterally causing mild bi lateral neural foraminal narrowing. Axial images at C4-C5 level shows small right foraminal disc protrusion causing mild right-sided neur al foraminal narrowing. Axial images at C5-C6 level show focal broad-based right paracentral disc protrusion effacing the ant erior thecal sac, there is moderate right-sided neural foraminal narrowing. Axial images at C6-C7 level broad-based posterior disc protrusion effacing anterior thecal sac and ca using moderate to severe left and mild right-sided neural foraminal narrowing. Axial images at C7-T1 level appear within normal limits. IMPRESSION: Straightening of cervical spine with spondylolisthesis and degenerative change greatest a t C6-C7 level as detailed above.
== END | disposition home or self-care (01) ==
LOC: RADMRIMAIN 17:30
PROVIDERS: ATTEND Family Medicine
DX: M43.12 Spondylolisthesis, cervical region (principal); M47.812 Spondylosis without myelopathy or radiculopathy, cervical region
CPT/HCPCS: 72141

== ENCOUNTER → 2022-03-31 | Outpatient (CLI) | payer BC ==
--- NOTE | 2022-03-31 20:29 | CT ---
EXAMINATION TYPE: CT abdomen pelvis w con DATE OF EXAM: 03/31/2022 COMPARISON: 06/11/2020 HISTORY: Diverticulitis of large intestine without perforation or abscess without bleeding. CT DLP: 1546.2 mGycm Automated exposure control for dose reduction was used. CONTRAST: Performed with IV Contrast, patient injected with 100cc mL of Isovue 300. Images obtained from the diaphragm to the floor the pelvis with the oral and IV contrast. The lung bases are clear. No pleural effusion. Heart size is normal. No pericardial effusion. Stomach appears intact. There is no pancreatic mass. Liver and spleen appear intact. The bile ducts a re not dilated. Gallbladder appears normal. There is no adrenal mass. Kidneys have normal size and contour. No hydronephrosis. Ureters are not di lated. No retroperitoneal adenopathy. There is some minimal stranding around the mid sigmoid colon. T here are sigmoid diverticula. No inguinal hernia. The bladder distends smoothly. No pelvic mass. No f ree fluid in the pelvis. The terminal ileum appears normal. No sign of thickened appendix. There is n o ascites or free air. No bowel obstruction. IMPRESSION: There is evidence for sigmoid diverticulitis. Multiple sigmoid diverticula. Diverticulitis in similar location compared to last exam.
== END | disposition home or self-care (01) ==
LOC: RADCTMAIN 16:58
PROVIDERS: ATTEND Family Medicine
DX: K57.32 Diverticulitis of large intestine without perforation or abscess without bleeding (principal)
CPT/HCPCS: 74177; Q9967 ×2

== ENCOUNTER → 2022-10-16 | Outpatient (CLI) | payer BC ==
--- NOTE | 2022-10-16 09:03 | XR ---
EXAMINATION TYPE: XR cervical spine limited DATE OF EXAM: 10/16/2022 Comparison: None Clinical History: 57-year-old male C61 MALIGNANT NEOPLASM OF PROSTATE Findings: ACDF hardware at C5-C7 levels. No predental space widening or prevertebral soft tissue swelling. Alig nment is maintained. Mild facet and uncovertebral joint arthropathy lower cervical spine. Normal odon toid view. Impression: Uncomplicated appearance to the C5-C7 ACDF. No malalignment or prevertebral soft tissue swelling.
== END | disposition home or self-care (01) ==
LOC: RADXRMAIN 08:17
PROVIDERS: ATTEND Physician Assistant Surgical
DX: C61 Malignant neoplasm of prostate (principal); M47.812 Spondylosis without myelopathy or radiculopathy, cervical region
CPT/HCPCS: 72040

== ENCOUNTER → 2022-10-16 | Outpatient (CLI) | payer BC ==
[2022-10-16 17:42] LABS: HCT 45.2 % (39.6-50.0); MCH 29.7 pg (27.0-32.0); MCHC 33.2 g/dL (32.0-37.0); MCV 89.5 fL (80.0-97.0); Mean Platelet Volume 9.8 fL (9.5-12.2); NRBC Per 100 WBC 0 /100 WBCS (0.0-0.0); Platelet Count 299 X 10*3/uL (140-440); RBC 5.05 X 10*6/uL (4.40-5.60); RDW 12.7 % (11.5-14.5)
[2022-10-16 18:08] LABS: ALT 38 U/L (10-49); AST 22 U/L (14-35); African American GFR (CKD) 96.6 (60.0-200.0); Albumin 4.4 g/dL (3.8-4.9); Albumin/Globulin Ratio 2.04 (1.60-3.17); Alkaline Phosphatase 87 U/L (41-126); BUN/Creat Ratio 11.55 Ratio (12.00-20.00); Blood Urea Nitrogen 11.4 mg/dL (9.0-27.0); Calcium 9.5 mg/dL (8.7-10.3); Carbon Dioxide 28.8 mmol/L (20.0-27.5); Chloride 106 mmol/L (96-109); Chol/HDL Ratio 4.25 Ratio; Globulin 2.2 g/dL (1.6-3.3); Glucose 105 mg/dL (70-110); LDL Cholesterol,Calculated 136.6 mg/dL (0.0-131.0); Non-African American GFR(CKD) 83.3 (60.0-200.0); Potassium 4.7 mmol/L (3.5-5.5); Sodium 143 mmol/L (135-145); Total Protein 6.6 g/dL (6.2-8.2)
== END | disposition home or self-care (01) ==
LOC: LABWHC1 09:05
PROVIDERS: ATTEND Family Medicine
DX: Z00.00 Encounter for general adult medical examination without abnormal findings (principal)
CPT/HCPCS: 36415; 80053; 80061; 82306; 83036; 84153; 85027

== ENCOUNTER → 2024-11-10 | Outpatient (CLI) | payer BC ==
[2024-11-10 13:49] LABS: Appearance,Urine Cloudy (Clear); Bilirubin,Urine Negative (Negative); Blood,Urine Negative (Negative); Color,Urine Yellow (Yellow); Ketones,Urine Negative (Negative); Nitrite,Urine Negative (Negative); Urobilinogen,Urine 0.2 E.U./DL
[2024-11-10 13:56] LABS: Bacteria,Urine None Seen (None Seen)
[2024-11-10 14:06] LABS: HCT 45.6 % (39.6-50.0); HGB 15.3 g/dL (13.0-17.0); MCH 29.8 pg (27.0-32.0); MCHC 33.6 g/dL (32.0-37.0); MCV 88.7 FL (80.0-97.0); Mean Platelet Volume 10.2 FL (9.5-12.2); NRBC Per 100 WBC 0 X 10*3/uL (0.00-0.01); Platelet Count 200 X 10*3/uL (140-440); RBC 5.14 X 10*6/uL (4.40-5.60); RDW 11.7 % (11.5-14.5); WBC 4.61 X 10*3/uL (4.50-10.00)
[2024-11-10 14:12] LABS: ALT 40 U/L (10-49); AST 28 U/L (14-35); Albumin 4.2 g/dL (3.8-4.9); Alkaline Phosphatase 72 U/L (41-126); Blood Urea Nitrogen 10.6 mg/dL (9.0-27.0); Calcium 9.2 mg/dL (8.7-10.3); Carbon Dioxide 24.6 mmol/L (21.6-31.8); Chloride 107 mmol/L (96-109); Chol/HDL Ratio 4.27 Ratio; Glucose 103 mg/dL (70-110); LDL Cholesterol,Calculated 134.8 mg/dL (0.0-131.0); Potassium 4.4 mmol/L (3.5-5.5); Sodium 143 mmol/L (135-145); Total Bilirubin 0.3 mg/dL (0.3-1.2); Total Protein 6.2 g/dL (6.2-8.2)
== END | disposition home or self-care (01) ==
LOC: LABWHC1 07:44
PROVIDERS: ATTEND Family Medicine
DX: Z00.00 Encounter for general adult medical examination without abnormal findings (principal); R35.0 Frequency of micturition; R68.82 Decreased libido
CPT/HCPCS: 36415; 80053; 80061; 81001; 82306; 83036; 84153; 84270; 84402; 84403; 84443; 85027